=== PATIENT | female | born 2000 | race Caucasian/White ===

== ENCOUNTER 2024-11-26 06:27 | Day surgery (SDC) | payer OTHER, SELFPAY | END 2024-11-26 15:40 | disposition home or self-care (01) | LOC: GI 06:27 | PROVIDERS: ATTENDING PHYSICIAN Internal Medicine Gastroenterology | DX: K90.0 Celiac disease (principal); K21.00 Gastro-esophageal reflux disease with esophagitis, without bleeding; K63.9 Disease of intestine, unspecified | CPT/HCPCS: 43239; 88305 ==